=== PATIENT | female | born 1995 | race Caucasian/White ===

== ENCOUNTER → 2023-05-02 14:18 | Outpatient (CLI) | payer OTHER, SELFPAY ==
[2023-05-02 15:15] LABS: Add Manual Diff / Slide Review NO; Basophils Absolute Auto 0 /uL (0-100); Basophils Percent Auto 0.4 % (0-2); Eosinophils Absolute Auto 200 /uL (0-450); Eosinophils Percent Auto 1.7 % (2-4); Hematocrit 37.1 % (36-46); Hemoglobin 12.8 g/dL (12.0-16.0); Lymphocytes Absolute Auto 1900 /uL (1100-4500); Lymphocytes Percent Auto 19.1 % (25-40); Mean Corpuscular HGB Conc 34.5 % (30-36); Mean Corpuscular Hemoglobin 29.4 PG (26-34); Mean Corpuscular Volume 85.2 fL (80-100); Monocytes Absolute Auto 600 /uL (0-900); Monocytes Percent Auto 5.4 % (3-14); Neutrophils Absolute Auto 7500 /uL (1500-7000); Neutrophils Percent Auto 73.4 % (50-75); Platelet Count 329 X10^3/uL (150-400); Red Blood Cell Count 4.35 X10^6/uL (4.0-5.2); White Blood Cell Count 10.2 X10^3/uL (4.5-11.0)
[2023-05-02 15:20] LABS: Appearance Urine UA CLEAR; Bilirubin Urine UA NEGATIVE (NEGATIVE); Color Urine UA YELLOW; Glucose Urine UA NEGATIVE (Negative); Ketones Urine UA NEGATIVE (NEGATIVE); Leukocyte Esterase Urine UA 1+ (NEGATIVE); Nitrite Urine UA NEGATIVE (Negative); Occult Blood Urine UA NEGATIVE (Negative); Protein Urine UA NEGATIVE (Negative); Urobilinogen Urine UA 0.2 E.U./dL (0.2)
[2023-05-02 15:34] LABS: Alanine Aminotransferase 12 IU/L (<35); Aspartate Aminotransferase 20 IU/L (14-36); BUN Creatinine Ratio 10.7 (6-22); Blood Urea Nitrogen 6 mg/dL (7-17); Estimated Glomerular Filt Rate > 60 mL/min (>60); Uric Acid 3.4 mg/dL (2.5-6.2)
[2023-05-02 15:57] LABS: Bacteria Urine Moderate (10-30); RBC Urine 0-1/HPF (0-5/HPF); Squamous Epithelial Cell Urine 1-5 /HPF (0-5/HPF); WBC Urine 10-30/HPF (0-5/HPF)
[2023-05-02 20:07] LABS: HIV 1 & 2 Ab/Ag 4th Gen Combo NEGATIVE (NEGATIVE); Hep C Virus Ab w/Reflex Quant NEGATIVE s/c (NEGATIVE)
[2023-05-02 20:56] LABS: Hepatitis B Surface Antigen NEGATIVE s/c (NEGATIVE); Rubella Antibody IgG 58.1 IU/mL (>15)
[2023-05-04 06:11] LABS: RPR Screen Non Reactive (Non Reactive)
[2023-05-04 14:24] LABS: Varicella IgG Antibody 1654 index (Immune >165)
== END ==
LOC: LAB 14:19
PROVIDERS: Referring Provider Family Medicine; Visit Provider Family Medicine
DX: O09.299 Supervision of pregnancy with other poor reproductive or obstetric history, unspecified trimester (principal)
CPT/HCPCS: 36415; 80055; 81003; 81015; 82565; 84450; 84460; 84520; 84550; 86787; 86803; 86850; 86900; 86901; 87086; 87389

== ENCOUNTER → 2023-05-10 13:49 | Outpatient (CLI) | payer OTHER, SELFPAY ==
--- NOTE | 2023-05-10 13:49 | DI.US.S_ITS ---
PROCEDURE: US OB >= 14 WEEKS FETUS INDICATIONS: anatomy scan OUTSIDE/PRIOR DATING DATA: Last menstrual period (LMP): 12/21/2022 LMP-based estimated date of delivery (RADHA): 09/27/2023. First dating scan (date and location): 05/10/2023. Estimated date of delivery (RADHA) from first dating scan: 09/23/2023. TECHNIQUE: Real-time scanning was performed of the fetus, with image documentation and biometric measurements. COMPARISON: None. FINDINGS: General: A single living intrauterine gestation is present. Presentation: Vertex. Placenta: Placental position is posterior , without previa. Lower placental edge 2 cm or less from internal cervical os qualifies as low lying placenta. Amniotic fluid index: 12.6 cm, normal range is 5-24 cm. Single deepest vertical pocket is 5.2 cm. heart rate: 150 beats per minute. Maternal cervical canal: 4.7 cm long. Normal lower limit is 2.5 cm. biometrics: Biparietal diameter: 21 weeks 4 days Head circumference: 21 weeks 0 days Abdominal circumference: 19 weeks 4 days Femur length: 20 weeks 0 days Clinically estimated gestational age: 20 weeks 0 Composite gestational age from present scan: 20 weeks 4 days Estimated weight and percentile: 324 g; 43rd percentile Anatomic survey: Neuro: Ventricles are non-dilated at less than 10 mm. Cisterna magna is normal at 3-11 mm. Cerebellum is normal in size and morphology. Nuchal skin fold: Normal at less than 6 mm between 14-21 weeks gestational age. Face: Nose and lips, facial profile are normal. Spine: No evidence for spina bifida. Heart: 4-chambered heart is present, with normal LVOT. RVOT suboptimally visualized.. Diaphragm: Diaphragm is intact. Stomach: Left-sided stomach is present. Kidneys: No hydronephrosis. Normal is less than 5 mm in 2nd trimester, less than 7 mm in 3rd trimester. Cord: 3-vessel cord has orthotopic insertion. Bladder: Normal in size. Extremities: All 4 extremities identified. IMPRESSION: 1. Single living IUP redemonstrated and interval growth is normal. 2. RVOT suboptimally visualized; otherwise normal anatomic survey. Short-term follow-up recommended. We strive to produce accurate, complete, and clear reports of imaging services. To assist us in improving patient care, this report was composed using standard report templates and voice recognition software. Therefore, it may contain abnormal punctuation, insertions and/or omissions. Occasional wrong-word or sound-alike substitutions may occur. Though we review the report and make efforts to correct it, we do recommend that the report be read carefully in proper context to recognize any text inaccuracies. Dictated by: Mike BARRETT Interpreted: Praneeth Spaulding MD on 05/10/2023 at 14:46 Transcribed by: MAGY on 05/10/2023 at 14:48 Approved by: Praneeth Spaulding M.D. on 05/17/2023 at 11:19
== END ==
LOC: US 13:49
PROVIDERS: Referring Provider Family Medicine; Visit Provider Family Medicine
DX: O09.292 Supervision of pregnancy with other poor reproductive or obstetric history, second trimester (principal); Z3A.20 20 weeks gestation of pregnancy
CPT/HCPCS: 76811

== ENCOUNTER → 2023-06-13 08:30 | Outpatient (CLI) | payer OTHER, SELFPAY ==
--- NOTE | 2023-06-13 08:31 | DI.US.S_ITS ---
PROCEDURE: US OB LIMITED INDICATIONS: visualization of heart OUTSIDE/PRIOR DATING DATA: Last menstrual period (LMP): 12/21/2022. LMP-based estimated date of delivery (RADHA): 09/27/2023. First dating scan (date and location): 05/10/2023. Estimated date of delivery (RADHA) from first dating scan: 09/23/2023. The calculations are made using the clinical RADHA of 09/27/2023. TECHNIQUE: Real-time scanning was performed of the fetus, with image documentation. COMPARISON: [facility], , US OB >= 14 WEEKS FETUS, 05/10/2023, 13:56. FINDINGS: A single living intrauterine gestation is present. Presentation: Vertex. Placenta: Placental position is posterior, without previa. Amniotic fluid index: 16.5 cm, normal range is 5-24 cm. Single deepest vertical pocket is 5.5 cm. heart rate: 131 beats per minute. Maternal cervical canal: 3.8 cm long. Normal lower limit is 2.5 cm. Clinically estimated gestational age: 24 weeks 6 days Followup visualization of the heart is within normal limits. IMPRESSION: Single live intrauterine with normal visualization of the heart on current exam point Dictated by: Audrey Mayes M.D. on 06/13/2023 at 13:17 Approved by: Audrey Mayes M.D. on 06/13/2023 at 13:19
[2023-06-13 10:33] LABS: Add Manual Diff / Slide Review NO; Basophils Absolute Auto 0 /uL (0-100); Basophils Percent Auto 0.3 % (0-2); Eosinophils Absolute Auto 100 /uL (0-450); Eosinophils Percent Auto 1.3 % (2-4); Hematocrit 34.5 % (36-46); Hemoglobin 12.2 g/dL (12.0-16.0); Lymphocytes Absolute Auto 1900 /uL (1100-4500); Lymphocytes Percent Auto 18.6 % (25-40); Mean Corpuscular HGB Conc 35.5 % (30-36); Mean Corpuscular Hemoglobin 30.3 PG (26-34); Mean Corpuscular Volume 85.3 fL (80-100); Monocytes Absolute Auto 500 /uL (0-900); Monocytes Percent Auto 5.1 % (3-14); Neutrophils Absolute Auto 7600 /uL (1500-7000); Neutrophils Percent Auto 74.7 % (50-75); Platelet Count 286 X10^3/uL (150-400); Red Blood Cell Count 4.04 X10^6/uL (4.0-5.2); Red Cell Distribution Width 13.8 % (11.6-14.8); White Blood Cell Count 10.2 X10^3/uL (4.5-11.0)
[2023-06-13 11:01] LABS: Creatinine Urine Random 44.4 mg/dL; Protein (Total) Urine Random 12 mg/dL (0-12); Protein Creatinine Ratio Urine 0.27 GRAM/24H
[2023-06-13 11:21] LABS: Alanine Aminotransferase 13 IU/L (<35); Albumin 3.6 g/dL (3.5-5.0); Albumin Globulin Ratio 1.2 (1.0-2.8); Alkaline Phosphatase 60 U/L (38-126); Aspartate Aminotransferase 22 IU/L (14-36); Bilirubin Total 0.4 mg/dL (0.2-1.3); Blood Urea Nitrogen 4 mg/dL (7-17); Calcium 8.8 mg/dL (8.4-10.2); Carbon Dioxide 21 mmol/L (22-32); Chloride 106 mmol/L (98-107); Estimated Glomerular Filt Rate > 60 mL/min (>60); GTT (PREG) 1 Hour PP 50gm Dose 100 mg/dL (76-139); Globulin 3.1 g/dL (1.7-4.1); Glucose 100 mg/dL (70-100); HEMOLYSIS < 15 (0-50); Potassium 3.6 mmol/L (3.4-5.1); Sodium 136 mmol/L (137-145); Total Protein 6.7 g/dL (6.3-8.2)
== END ==
LOC: US 08:31
PROVIDERS: Referring Provider Family Medicine; Visit Provider Family Medicine
DX: O09.292 Supervision of pregnancy with other poor reproductive or obstetric history, second trimester (principal); O99.212 Obesity complicating pregnancy, second trimester; Z3A.24 24 weeks gestation of pregnancy
CPT/HCPCS: 36415; 76815; 80053; 82570; 82950; 84156; 85025

== ENCOUNTER → 2023-07-11 11:46 | Outpatient (CLI) | payer OTHER, SELFPAY ==
[2023-07-11 12:17] LABS: Add Manual Diff / Slide Review NO; Basophils Absolute Auto 0 /uL (0-100); Basophils Percent Auto 0.1 % (0-2); Eosinophils Absolute Auto 100 /uL (0-450); Eosinophils Percent Auto 0.9 % (2-4); Hematocrit 34.4 % (36-46); Hemoglobin 11.9 g/dL (12.0-16.0); Lymphocytes Absolute Auto 1900 /uL (1100-4500); Lymphocytes Percent Auto 19.5 % (25-40); Mean Corpuscular HGB Conc 34.6 % (30-36); Mean Corpuscular Hemoglobin 29.9 PG (26-34); Mean Corpuscular Volume 86.6 fL (80-100); Monocytes Absolute Auto 600 /uL (0-900); Monocytes Percent Auto 5.7 % (3-14); Neutrophils Absolute Auto 7300 /uL (1500-7000); Neutrophils Percent Auto 73.8 % (50-75); Platelet Count 283 X10^3/uL (150-400); Red Blood Cell Count 3.98 X10^6/uL (4.0-5.2); Red Cell Distribution Width 13.6 % (11.6-14.8); White Blood Cell Count 9.9 X10^3/uL (4.5-11.0)
== END ==
PROVIDERS: Referring Provider Family Medicine; Visit Provider Family Medicine
DX: D64.9 Anemia, unspecified (principal)
CPT/HCPCS: 36415; 85025

== ENCOUNTER 2023-09-01 19:32 | Observation (INO) | payer OTHER, SELFPAY ==
[2023-09-01 20:51] LABS: Creatinine Urine Random 24.6 mg/dL; Protein (Total) Urine Random 17 mg/dL (0-12); Protein Creatinine Ratio Urine 0.69 GRAM/24H
--- NOTE | 2023-09-01 21:00 | PM.OBTRLD ---
Visit Information Visit Information Date of evaluation: 09/01/23 Primary OB Provider: Esteban Ambrose On-call OB Provider: Bianka Richards Comments/Additional reasons for admission: 27yo at 36w2d here due to dizziness, lightheadedness, and vision changes. The pt reports that this morning she woke with a headache and slightly blurry vision. She was seeing stars with position changes, but this isn't new with her . Yesterday she had some mild RUQ pain, but none today. Her headache and blurry vision have now improved. She was outside on a brisk walk, and started to feel lightheaded and dizzy. She does report not drinking as much water as usual today. This has improved since resting in the hospital. She denies any contractions/cramping, LOF, vaginal bleeding. She feels that her leg swelling has been gradually worsening over the last week or so. The pt was checking her BPs at home throughout the day, and they were frequently 140/90, but not higher. [facility] Surgical History (Updated 05/01/23 @ 08:09 by Yary Farooq RN) History of removal of skin mole [place] teeth extracted History of appendectomy History of cholecystectomy Family History (Updated 05/01/23 @ 08:13 by Yary Farooq RN) Mother Pseudotumor Hypertension Father Heart disease Family estrangement Grandmother Fibrocystic breast Family/Other Epilepsy Social History marital status: number of children: 3 household members: spouse and children lives independently: Yes caregiver/support person: Yes housing: apartment pets and animals: No education level: college occupational status: unemployed current occupational exposures/hazards: No special rody needs: No travel history: recent seatbelt use: always water heater temp set < 120 deg: Yes working smoke detector in home: Yes fire extinguisher in home: Yes carbon monox detector in home: Yes firearms in home: No do you feel safe at home: Yes Smoking Status: Never smoker second hand exposure: No alcohol intake: former substance use type: does not use during the past year weight has: other well-balanced diet: daily or most days daily servings fruits/ve-4 caffeine: Yes (AM cup coffee, usually decaf) Type(s) of exercise: bicycling and other Exam Vital Signs (past 8 hours): Gen: NAD, sitting comfortably on bed, appears well CV: RRR, no murmurs Resp: clear to auscultation bilaterally Ext: trace LE edema Objective Labs 09/01/23 20:45 09/01/23 20:45 Labs: Laboratory Results - last 24 hr 09/01/23 19:40 U Random Total Protein 17 H Urine Creatinine 24.6 Protein/Creatinin Ratio 0.69 Evaluation Evaluation Baseline heart rate: 110 Variability: Moderate (11-25) monitor accelerations: Present Monitor Decelerations: Absent Category of Tracing: Reactive Diagnosis, Plan/Disposition Plan/Disposition Plan: 27yo at 36w2d here due to dizziness, lightheadedness, and vision changes. Mild headache this morning, now resolved. BP elevated at home reportedly, normotensive here. Lab work does show elevated Pr/Cr, no evidence of HELLP. Will have pt complete 24hr urine protein at home to confirm elevation. Discussed with pt recommendations: - Continue checking BPs at home TID. Return for evaluation if > 160/110. - Adequate hydration, rest as much as possible on her left side - Symptoms that warrant return to hospital including headache, vision changes, RUQ pain, acutely worsening swelling - Complete 24hr urine protein at home - Pt will f/u with Dr Ambrose as scheduled on 09/04 with BP log. May need IOL at earlier date OB Disposition: home
[2023-09-01 21:01] LABS: Add Manual Diff / Slide Review NO; Basophils Absolute Auto 0 /uL (0-100); Basophils Percent Auto 0.2 % (0-2); Eosinophils Absolute Auto 200 /uL (0-450); Eosinophils Percent Auto 1.5 % (2-4); Hematocrit 35.9 % (36-46); Hemoglobin 12.4 g/dL (12.0-16.0); Lymphocytes Absolute Auto 3700 /uL (1100-4500); Mean Corpuscular HGB Conc 34.6 % (30-36); Mean Corpuscular Hemoglobin 29.2 PG (26-34); Mean Corpuscular Volume 84.3 fL (80-100); Monocytes Absolute Auto 1000 /uL (0-900); Monocytes Percent Auto 7.1 % (3-14); Neutrophils Absolute Auto 8800 /uL (1500-7000); Neutrophils Percent Auto 64.2 % (50-75); Platelet Count 384 X10^3/uL (150-400); Red Blood Cell Count 4.26 X10^6/uL (4.0-5.2); Red Cell Distribution Width 13.6 % (11.6-14.8); White Blood Cell Count 13.7 X10^3/uL (4.5-11.0)
[2023-09-01 21:13] LABS: Alanine Aminotransferase 18 IU/L (<35); Albumin 3.8 g/dL (3.5-5.0); Albumin Globulin Ratio 1.3 (1.0-2.8); Alkaline Phosphatase 171 U/L (38-126); Aspartate Aminotransferase 28 IU/L (14-36); BUN Creatinine Ratio 12.1 (6-22); Bilirubin Total 0.4 mg/dL (0.2-1.3); Blood Urea Nitrogen 8 mg/dL (7-17); Calcium 9.4 mg/dL (8.4-10.2); Carbon Dioxide 23 mmol/L (22-32); Chloride 107 mmol/L (98-107); Estimated Glomerular Filt Rate > 60 mL/min (>60); Glucose 84 mg/dL (70-100); HEMOLYSIS < 15 (0-50); Potassium 3.9 mmol/L (3.4-5.1); Sodium 134 mmol/L (137-145); Total Protein 6.8 g/dL (6.3-8.2)
== END 2023-09-01 21:51 | disposition home or self-care (01) ==
PROVIDERS: Admitting Provider Family Medicine; Referring Provider Family Medicine; Visit Provider Family Medicine
DX: O26.893 Other specified pregnancy related conditions, third trimester (principal); Z3A.36 36 weeks gestation of pregnancy; R42 Dizziness and giddiness; H53.9 Unspecified visual disturbance; R51.9 Headache, unspecified
CPT/HCPCS: 36415; 59025; 80053; 82570; 84156; 85025; G0378; G0379

== ENCOUNTER → 2023-09-04 10:05 | Outpatient (CLI) | payer OTHER, SELFPAY ==
[2023-09-04 11:55] LABS: Collection Time Urine 24 Hours; Protein (Total) Urine Random 10 mg/dL (0-12); Total Protein 24 Hour Urine 400 mg/day (42-225); Total Volume Urine 4000 mL
== END ==
PROVIDERS: Referring Provider Family Medicine; Visit Provider Family Medicine
DX: O13.9 Gestational [pregnancy-induced] hypertension without significant proteinuria, unspecified trimester (principal)
CPT/HCPCS: 84156

== ENCOUNTER → 2023-09-05 14:45 | Outpatient (CLI) | payer OTHER, SELFPAY ==
[2023-09-06 14:27] LABS: Strep Grp B PCR NEG for Grp B Strep
== END ==
PROVIDERS: Visit Provider Family Medicine
DX: O09.299 Supervision of pregnancy with other poor reproductive or obstetric history, unspecified trimester (principal)
CPT/HCPCS: 87653

== ENCOUNTER 2023-09-08 07:22 | Inpatient (IN) | payer OTHER, SELFPAY ==
--- NOTE | 2023-09-08 07:58 | P.HPOB_ITS ---
OB HPI Date/Time Date of admission: 09/08/23 Date Patient Seen: 09/08/23 History of Present Condition Chief complaint: induction RADHA Calculator 2 Estimated Delivery Date Method Current WG Current Estimate 09/27/23 LMP (Certain) 37w 2d Estimated Gestational Age (weeks): 37+2 : 4 Para: 3 Narrative: Marivel is a 27-year-old at GA 37+2 weeks presenting for mIOL due to preeclampsia without severe features. Endorses normal movement. Denies vaginal bleeding or denies leakage of fluid. She has been experiencing increased dizziness, lightheadedness and occasional vision changes over the preceding 2-3 weeks. Seen 1 week ago as triage patient, found to have elevated urine protein/creatinine ratio but normal BP, platelets, and LFTs. Discharge home in completed 24 hour urine collection which was noted to be elevated at 400 mg per day. She currently denies any headache, acute vision change, RUQ pain, new SOB, or peripheral edema. complicated by history of preeclampsia for which she is taking aspirin 81 mg daily and obesity with appropriate weight gain during . There was concern for low-lying placenta on initial anatomy ultrasound which subsequently resolved on follow-up imaging 4 weeks later. care: good care Dating criteria OB: LMP confirmed by 1st trimester US Ultrasounds: normal 1st trimester US and normal mid trimester US Obstetrical complications: preeclampsia Indications Indication for induction OB: gestational HTN/pre-eclampsia Preadmission Labs Last OB Lab Results: 2 Blood Type A Positive 09/08/23 08:15 Antibody Screen Negative 09/08/23 08:15 Hematocrit 40.4 % (36-46) 09/08/23 08:15 Hemoglobin 13.7 g/dL (12.0-16.0) 09/08/23 08:15 Hepatitis B Surface Antigen Negative s/c (NEGATIVE) 05/02/23 14 :25 Hepatitis C Antibody Negative s/c (NEGATIVE) 05/02/23 14:29 Rubella Antibody 58.1 IU/mL (>15) 05/02/23 14:25 Varicella-Zoster IgG Antibody 1654 index (Immune >165) 05/02/23 14:29 Glucose 1 Hour 100 mg/dL (76-139) 06/13/23 10:22 Group B Streptococcus (PCR) Neg for grp b strep 09/05/23 14:45 Glucose Tolerance Testin hr Prior (ies) Past Pregnancies Del. Date GA/Weeks Labor Lgth Wt Sex Route Outcome Anesthesia Place Delv Breastfeed Preg Comp Name 06/20/19 37+ 24 6 lb 10 oz Male vaginal live - full te rm epidural [facility] Attempted other [place] 08/03/20 40.1 3 7 lb 15 oz Male vaginal live - full term n one Jessenia Nair 1 month pre-eclampsia [place] 07/27/22 39 4 6 lb 15 oz Female vaginal live - full te rm epidural Jessenia Nair 5 months none [place] Delivery Date: 06/20/19 Last Updated by: Yary Farooq RN gallstones, induced so that she could have cholecystectomy Delivery Date: 08/03/20 Last Updated by: Yary Farooq RN Almost immediate Covid, preeclampsia lasted ~4 months Evaluation Evaluation Baseline heart rate: 120 Variability: Moderate (11-25) monitor accelerations: Present Monitor Decelerations: Absent Category of Tracing: Reactive Status: Category l Dilation: Closed Effacement: 40-50% station: -3 Position of cervix: posterior Consistency: firm Mercado score: 1 Comments: Exam per L&D RN [facility] Surgical History (Updated 05/01/23 @ 08:09 by Yary Farooq RN) History of removal of skin mole [place] teeth extracted History of appendectomy History of cholecystectomy Family History (Updated 05/01/23 @ 08:13 by Yary Farooq RN) Mother Pseudotumor Hypertension Father Heart disease Family estrangement Grandmother Fibrocystic breast Family/Other Epilepsy Social History marital status: number of children: 3 household members: spouse and children lives independently: Yes caregiver/support person: Yes housing: apartment pets and animals: No education level: college occupational status: unemployed current occupational exposures/hazards: No special rody needs: No travel history: recent seatbelt use: always water heater temp set < 120 deg: Yes working smoke detector in home: Yes fire extinguisher in home: Yes carbon monox detector in home: Yes firearms in home: No do you feel safe at home: Yes Smoking Status: Never smoker second hand exposure: No alcohol intake: former substance use type: does not use during the past year weight has: other well-balanced diet: daily or most days daily servings fruits/ve-4 caffeine: Yes (AM cup coffee, usually decaf) Type(s) of exercise: bicycling and other Meds Home Medications and Allergies Home Medications Medication Instructions Recorded Confirmed Type [id number] 400 mcg-om3 35 mg-dha 25 tab PO 05/01/23 09/05/23 History mg-epa 5 mg-fish oil chewable tablet aspirin 81 mg tablet,delayed 81 mg PO DAILY 05/01/23 09/05/23 History release famotidine 20 mg tablet 20 mg PO DAILY #90 tabs 05/30/23 09/05/23 Rx doxylamine succinate 25 mg tablet 25 mg PO BEDTIME PRN insomnia #30 08/17/23 09/05/23 Rx (Unisom (doxylamine)) tabs fluconazole 150 mg tablet 150 mg PO Q3D 2 doses #2 tabs 08/27/23 09/05/23 Rx Allergies Allergy/AdvReac Type Severity Reaction Status Date / Time No Known Drug Allergies Allergy Verified 09/05/23 14:40 Review of Systems Review of Systems ROS: Yes All systems reviewed with the patient and are negative except as otherwise documented OB Exam Narrative Exam Narrative: General: Well-nourished, no distress HEENT: NC/AT, EOMI, moist mucous membranes CV: RRR, normal S1 S2, no m/g/r Resp: CTAB Abd: Gravid, soft, NTND, +BS Ext: Full ROM, varicose veins affecting RLE, no edema Skin: No rash or lesions Neuro: A&O x3, normal tone, no focal deficits Objective Labs 09/08/23 08:15 09/08/23 08:15 Assessment and Plan Assessment and Plan Assessment and Plan narrative: 27-year-old at [place] 37+2 weeks presenting for mIOL due to preeclampsia without severe features. complicated by worsening proteinuria, history of preeclampsia in previous , maternal obesity with appropriate weight gain. -admit to L&D -cervical ripening with misoprostol q4h, transition to pitocin when Mercado favorable -GBS negative, ppx not indicated -pain control prn if desired by patient -PPH risk low -VTE risk low, SCDs with epidural -anticipate vaginal delivery Time Spent with Patient Total time spent with greater than 50% in coordination of care (as documented) at patient's floor/unit and/or counseling patient:: 15-24 minutes
[2023-09-08 08:29] LABS: Add Manual Diff / Slide Review NO; Basophils Absolute Auto 0 /uL (0-100); Basophils Percent Auto 0.3 % (0-2); Eosinophils Absolute Auto 100 /uL (0-450); Eosinophils Percent Auto 0.9 % (2-4); Hematocrit 40.4 % (36-46); Hemoglobin 13.7 g/dL (12.0-16.0); Lymphocytes Absolute Auto 3900 /uL (1100-4500); Lymphocytes Percent Auto 26.1 % (25-40); Mean Corpuscular HGB Conc 33.8 % (30-36); Mean Corpuscular Volume 85.7 fL (80-100); Monocytes Absolute Auto 1000 /uL (0-900); Monocytes Percent Auto 6.5 % (3-14); Neutrophils Absolute Auto 10000 /uL (1500-7000); Neutrophils Percent Auto 66.2 % (50-75); Platelet Count 410 X10^3/uL (150-400); Red Blood Cell Count 4.71 X10^6/uL (4.0-5.2); Red Cell Distribution Width 13.6 % (11.6-14.8); White Blood Cell Count 15.1 X10^3/uL (4.5-11.0)
[2023-09-08] MEDS: miSOPROStoL 25 MCG TABLET PO (08:31)
[2023-09-08 09:17] VITALS: BP 123/79
[2023-09-08 10:20] LABS: Aspartate Aminotransferase 39 IU/L (14-36); BUN Creatinine Ratio 11.9 (6-22); Blood Urea Nitrogen 8 mg/dL (7-17); Estimated Glomerular Filt Rate > 60 mL/min (>60); Uric Acid 5.1 mg/dL (2.5-6.2)
[2023-09-08] MEDS: miSOPROStoL 25 MCG TABLET 50 MCG SL (12:38)
[2023-09-08] MEDS: LACTATED RINGERS 1,000 ML 100 ML IV ×2 (13:00→22:36)
[2023-09-08] MEDS: OXYTOCIN PREMIX 30 UNIT/500 ML PLAST..BAG IV (18:16)
[2023-09-08] MEDS: ONDANSETRON 4 MG/2 ML INJ IV (21:36)
[2023-09-09] MEDS: LACTATED RINGERS 1,000 ML 100 ML IV ×2 (03:47→15:42)
[2023-09-09] MEDS: miSOPROStoL 25 MCG TABLET 50 MCG SL (09:06)
[2023-09-09] MEDS: OXYTOCIN PREMIX 30 UNIT/500 ML PLAST..BAG IV (13:24)
--- NOTE | 2023-09-09 13:42 | PM.OBPNLAB ---
Date/Time Date Patient Seen: 09/09/23 Time Patient Seen: 13:42 Pain Control Pain control: other Comments: Increasing discomfort with pelvic exams, otherwise feeling fine. Somewhat frustrated with the process of induction. Pelvic Exam Dilation (cm): 3 Effacement (%): 80 station: -2 Amniotic membrane status: Intact Contractions Contractions on admission: none Monitor mode: External Pitocin rate (mU/min): 2 Contraction frequency (min): 4 Contraction duration (min): 1 Contraction pattern: Regular Status status: Category l Heart Rate Baseline: 125 Monitor Accelerations: Present Monitor Decelerations: Absent Monitor Variability: Moderate Assessment and Plan Assessment: induction ongoing Comments: IOL for preeclampsia w/o severe features starting with p.o. misoprostol x2 doses then transitioned to Pitocin once Mercado score was 6. No cervical change overnight despite Pitocin increase to max rate 20 mu/min. Repeat dose misoprostol administered this morning resulting in cervical ripening, current Mercado score 8. MWB: IV fentanyl administered x1 due to patient discomfort with pelvic exams. No clinical symptoms preeclampsia, BP has remained in normal range throughout admission. FWB: Cat 1 strip Plan: Man balloon placed, restart Pitocin and titrate to adequate contraction pattern. Plan AROM once in active labor. Anticipate vaginal delivery.
[2023-09-09] MEDS: fentaNYL 100 MCG/2 ML INJ 50 MCG IV (13:43)
--- NOTE | 2023-09-09 15:32 | PM.AN.REGBLK ---
Regional Block Pre-procedure Procedure: Continuous Lumbar Epidural for L&D Attending OB provider: Esteban Ambrose PMH/ROS narrative: 37w2d IOL for PEC Hx: No personal or family history of anesthesia problems. PSH/Anesthesia history narrative: previous DAT, gallbladder, appy ASA Class: II Labs: Hct 40.4 % (36-46) 09/08/23 08:15 Plt Count 410 X10^3/uL (150-400) H 09/08/23 08:15 Medications: Current Medications Generic Name Dose Route Start Last Admin Trade Name Freq PRN Reason Stop Dose Admin Carboprost Tromethamine 250 mcg 09/08/23 07:51 Carboprost 250 Mcg/Ml Ampul IM Q90M PRN Bleeding Fentanyl 50 mcg 09/08/23 07:51 09/09/23 13:43 Fentanyl 100 Mcg/2 Ml Inj IV 50 mcg Q1H PRN Administration Pain, Moderate (4-6) Oxytocin/Lactated Ringer's 30 unit in 500 mls @ 200 mls/hr 09/08/23 07:51 Oxytocin Premix IV CONT PRN Bleeding Protocol Tranexamic Acid 1,000 mg/ 100 mls @ 200 mls/hr 09/08/23 07:51 Sodium Chloride IV NOW PRN Bleeding Lactated Ringer's 1,000 mls @ 100 mls/hr 09/08/23 08:00 09/09/23 03:47 Lactated Ringers IV 100 mls/hr CONT BRETT Administration Oxytocin/Lactated Ringer's 30 unit in 500 mls @ 1 mls/hr 09/08/23 18:15 09/09/23 13:24 Oxytocin Premix IV 1 milliunit/min TITRATE BRETT 1 mls/hr Administration Protocol 1 MILLIUNIT/MIN Lidocaine HCl 20 ml 09/08/23 07:51 Lidocaine 1% 20 Ml INJ INTRA-OP PRN Post Delivery Methylergonovine Maleate 0.2 mg 09/08/23 07:51 Methylergonovine 0.2 Mg Tablet PO Q6HR PRN Heavy Bleeding Methylergonovine Maleate 0.2 mg 09/08/23 07:51 Methylergonovine 0.2 Mg/Ml Vial IM NOW PRN Bleeding Mineral Oil 30 ml 09/08/23 07:51 Mineral Oil 30 Ml Udc TOP PRN PRN Version Misoprostol 800 mcg 09/08/23 07:51 Misoprostol 200 Mcg Tablet NV NOW PRN Bleeding Misoprostol 400 mcg 09/08/23 07:51 Misoprostol 200 Mcg Tablet SL NOW PRN Bleeding Misoprostol 25 mcg 09/08/23 08:00 09/08/23 08:31 Misoprostol 25 Mcg Tablet PO 25 mcg Q4H BRETT Administration Misoprostol 50 mcg 09/08/23 11:53 09/09/23 09:06 Misoprostol 25 Mcg Tablet SL 50 mcg Q4H PRN Administration Labor Induction Naloxone HCl 0.2 mg 09/08/23 07:51 Naloxone 0.4 Mg/Ml Vial IV Q2MIN PRN Opiate Reversal Ondansetron HCl 4 mg 09/08/23 07:51 09/08/23 21:36 Ondansetron 4 Mg/2 Ml Inj IV 4 mg Q4HR PRN Administration Nausea And Vomiting Oxytocin 10 unit 09/08/23 07:51 Oxytocin 10 Unit/Ml Vial IM NOW PRN Bleeding Sodium Chloride 10 ml 09/08/23 09:00 Sodium Chloride 0.9% Flush IV BID BRETT Sodium Chloride 10 ml 09/08/23 07:51 Sodium Chloride 0.9% Flush IV PRN PRN Flush Allergies: Allergies Allergy/AdvReac Type Severity Reaction Status Date / Time No Known Drug Allergies Allergy Verified 09/05/23 14:40 Procedure Insertion date: 09/09/23 Insertion time: 15:06 Prep/Local: 1% lidocaine (CHG prep, Lido 3 cc @ L3/4, 2 cc @ L 4/5) Interspace: L3/4 unsuccessful, cathete @ L4/5 Patient position: sitting Needle: 18 gauge Josue Loss of resistance with: saline JULIANNE at (cm): 9 Catheter placed at SKIN (cm): 14 Insertion: No CSF, No Blood, No Paresthesia with insertion, No Paresthesia with injection and No Test dose reaction Initial Medications TEST DOSE time: 15:09 BOLUS DOSE time: 15:47 BOLUS DOSE (mL): 10 BOLUS DOSE med: other (0.125% bupivacaine) Infusion INFUSION: 0.125% bupivacaine and with fentanyl 2 mcg/mL Initial rate (mL/hr): 10 Post-procedure Anesthesia date START: 09/09/23 Anesthesia time START: 14:48
[2023-09-09] MEDS: ONDANSETRON 4 MG/2 ML INJ IV (16:18)
--- NOTE | 2023-09-09 18:31 | P.PCNOB_ITS ---
Events: Pre-Eclampsia, Labor Induction and Labor Augmentation Labor & Delivery Delivery date: 09/09/23 Cervical ripening method: per misoprostal protocol (with Man bulb) Induction method: per pitocin protocol Delivery augmentation: rupture of membranes Delivery monitor: external FHT Route of delivery: L&D Laceration Description: None Quantitative Blood Loss: 545 Anesthesia Type: Epidural Narrative: Patient fully dilated at 1750 and began pushing at 1807. Spontaneous vaginal delivery of a viable male in the NICHOLAS position occurred at 1811. The was suctioned and stimulated at the perineum, and gave appropriate cry with movement of all extremities. Delayed cord clamping was observed for over 60 seconds. The cord was clamped and cut, and the handed to mother for skin to skin. Cord blood and segment were obtained. The placenta was delivered without difficulty using gentle cord traction and found to be intact with a 3- vessel cord. After fundal massage the uterus was firm and bleeding stopped. The vagina and cervix were examined for lacerations with none noted. Patient stable with rooming in, bonding skin to skin and attempting to breastfeed. Baby 1: Infant gender: Male Presentation: vertex Position: Right Occiput Anterior Placenta delivery description: Spontaneous Cord Vessel Description: 3 Vessels, Nuchal Cord, True Knot and Loose score (1 min): 8 score (5 min): 9 weight: 7 lb 10.154 oz Narrative: Loose nuchal x1 delivered through and then released, true knot higher up cord. Plan for aftercare: Routine care
[2023-09-09] MEDS: DERMOPLAST SPRAY 20% 60 ML 1 SPRAY TOP (22:10)
[2023-09-09] MEDS: LANOLIN OINT 7 GM 1 APPLIC TOP (22:11)
[2023-09-09] MEDS: IBUPROFEN 600 MG TABLET PO (22:11)
[2023-09-10] MEDS: IBUPROFEN 600 MG TABLET PO ×2 (06:39→13:19)
[2023-09-10] MEDS: polyethylene glycoL 3350 17 GM POWD.PACK PO (10:01)
[2023-09-10] MEDS: PRENATAL VIT,CALC/IRON/FOLIC 1 TABLET 1 TAB PO (10:01)
--- NOTE | 2023-09-10 12:53 | P.DS_ITS ---
Discharge Providers Provider Date of admission: 09/08/23 07:22 Discharge Date: 09/10/23 Primary care physician: Paris MARTINEZ Provider Consults: 09/08/23 07:52 Consult to Anesthesiology Urgent Comment: Consulting Provider: Anesthesiologist Reason for consultation: Epidural 09/10/23 18:43 Consult to Bag Shop Worker Routine Comment: Discharge provider: Esteban Ambrose MD Summary Hospital Course Date Patient Seen: 09/10/23 Time Patient Seen: 12:53 Diagnoses: Preeclampsia without severe features Hospital Course: Admitted for mIOL on 09/08/2023 at GA 37+2 due to preeclampsia without severe features. Underwent cervical ripening starting with p.o. misoprostol x2 doses then transitioned to Pitocin once Mercado score was 6. No cervical change overnight despite Pitocin increase to max rate 20 mu/min. Repeat dose misoprostol administered next morning followed by Man balloon placement and reinitiation of Pitocin. She then progressed to complete dilation over the next 7 hours. She had an uncomplicated of a live male with no lacerations. Her course was uncomplicated, BP remained normal throughout admission. At discharge patient is ambulating well, tolerating normal diet, breast-feeding without difficulty, and pain is adequately controlled. She reports bleeding is slightly heavier than normal menses. Peripartum Data Infant Delivery Method: Natural Vaginal Laceration Description: None complications: none 1: Gender: Male Disposition of : home Discharge Diagnosis (1) Preeclampsia: Start Date: 09/01/23 Status: Acute (2) (spontaneous vaginal delivery): Start Date: 09/09/23 Status: Acute (3) Mother currently breast-feeding: Start Date: 09/09/23 Status: Acute Status at Discharge Cognitive/behavioral status at discharge: at baseline, oriented Functional status at discharge: independent ambulation Overall status at discharge: patient is back to baseline Time Spent with Patient Time attestation: Total time spent providing and/or coordinating discharge services: Greater than 30 minutes Objective Labs 09/08/23 08:15 09/08/23 08:15 Exam Narrative Exam Narrative: General: Well-appearing, well-nourished, no distress HEENT: Moist mucous membranes, no pallor CV: Regular rate and rhythm, no murmur auscultated Resp: CTAB, comfortable work of breathing Abdomen: Soft, bowel sounds present, fundus firm below umbilicus with appropriate tenderness Extremities: No edema, varicose veins of RLE, no calf tenderness or evidence of DVT Discharge Plan Discharge Plan Patient Disposition: Home Discharge orders & Medications Prescriptions: New Dermoplast (with menthol) 20-0.5 % Aerosol 1 spray topical Q1HR PRN (Reason: perineal pain) Qty: 56 1RF ibuprofen 600 mg Tablet 600 mg PO Q6HR PRN (Reason: Pain, Mild (1-3)) Qty: 60 0RF Purelan Cream 1 applic topical PRN PRN (Reason: Tenderness) Qty: 7 3RF [employer]. Witch Delia 12.5-50 % Pads, Medicated 1 pad topical Q30M PRN (Reason: Itching) Qty: 40 0RF polyethylene glycol 3350 17 gram/dose powder 17 g PO DAILY Qty: 510 1RF Continued famotidine 20 mg tablet 20 mg PO DAILY Qty: 90 1RF [id number] oil 400 mcg-35 mg -25 mg-5 mg tablet,chewable PO Discontinued Unisom (doxylamine) 25 mg tablet 25 mg PO BEDTIME PRN (Reason: insomnia) Qty: 30 1RF fluconazole 150 mg tablet 150 mg PO Q3D Qty: 2 0RF Rx Instructions: Take second dose after 72 hours if still experiencing symptoms aspirin 81 mg tablet,delayed release (DR/EC) 81 mg PO DAILY Follow up/Referrals: Paris Solo [Primary Care Provider] - Visit Report/Discharge Packet Stand Alone Forms: Discharge: Care, Patient Portal/API, Stroke Signs & Symptoms Discharge Data Primary Care Provider: Paris Solo Attending Provider: Esteban Ambrose Admit Date/Time: 09/08/23 07:22
[2023-09-10] MEDS: ACETAMINOPHEN 325 MG TABLET 650 MG PO (13:19)
== END 2023-09-10 13:40 | disposition home or self-care (01) | DRG 807 ==
PROVIDERS: Admitting Provider Family Medicine; Referring Provider Family Medicine; Visit Provider Family Medicine
DX: O14.04 Mild to moderate pre-eclampsia, complicating childbirth (principal); Z37.0 Single live birth; Z3A.37 37 weeks gestation of pregnancy
CPT/HCPCS: 36415; 59050; 59200; 84450; 84550; 85025; 86850; 86900; 86901; G0378; A9270; G0379; J2405; J2590; J3010

== ENCOUNTER 2024-05-31 10:38 | Emergency (ER) | payer OTHER, SELFPAY ==
[2024-05-31 10:56] VITALS: BP 137/83; PULSE 122; RESP 20; TEMP 37.3; O2SAT 96; BMI 39.2
[2024-05-31 11:14] VITALS: PULSE 110
[2024-05-31 11:58] LABS: Influenza A - CEPHEID Flu A NEGATIVE (NEGATIVE); Influenza B - CEPHEID Flu B NEGATIVE (NEGATIVE); Respiratory Syncytial Virus Negative (Negative)
[2024-05-31 12:05] LABS: COVID-19 CEPHEID 4-PLEX PCR Negative (Negative)
--- NOTE | 2024-05-31 12:23 | PC.NURSE ---
Gumaro MEHTA stated no throat culture
[2024-05-31 12:38] LABS: Strep Grp A by PCR Rapid Positive (Negative)
--- NOTE | 2024-05-31 13:16 | ED_ITS ---
HPI - URI/Sore Throat <Jacqueline Naik PA-C - Last Filed: 05/31/24 13:53> General Chief Complaint: Upper Respiratory Symptoms Stated Complaint: fever, nausea, dizzy Time Seen by Provider: 05/31/24 13:14 Source: patient Mode of arrival: Family Vehicle History of Present Illness HPI Narrative: 28-year-old female presents with a chief complaint of fever, little bit of nausea and just generally feeling unwell for the last couple of days. She also endorses a sore throat and measured her temperature yesterday tympanic of 104. She reports a little bit of mucus and blood tinge with occasional cough. She denies any shortness of breath or any history of any airspace disease. She did take Tylenol at 4:00 a.m. this morning which did help. She also reports some aches mainly on the left side, but no diarrhea, no back pain, not currently , she works at the Branch in the [employer]. No known contact with sick persons. All other systems are reviewed and are negative. Related Data Home Medications Medication Instructions Recorded Confirmed [id number] 400 mcg-om3 35 mg-dha 25 tab PO 05/01/23 10/20/23 mg-epa 5 mg-fish oil chewable tablet Previous Rx's Medication Instructions Recorded famotidine 20 mg tablet 20 mg PO DAILY #90 tabs 05/30/23 benzocaine 20 %-menthol 0.5 % 1 spray topical Q1HR PRN perineal 09/10/23 topical aerosol (Dermoplast (with pain #56 grams menthol)) glycerin-witch porfirio 12.5 %-50 % 1 pad topical Q30M PRN Itching #40 09/10/23 topical pads (A.E.R. Witch Porfirio) ea ibuprofen 600 mg tablet 600 mg PO Q6HR PRN Pain, Mild 09/10/23 (1-3) #60 tabs lanolin (Purelan topical cream) 1 applic topical PRN PRN 09/10/23 Tenderness #7 grams polyethylene glycol 3350 17 17 g PO DAILY #510 grams 09/10/23 gram/dose oral powder amoxicillin 500 mg tablet 500 mg PO TID #30 tabs 05/31/24 Allergies Allergy/AdvReac Type Severity Reaction Status Date / Time No Known Drug Allergies Allergy Verified 10/20/23 11:07 Review of Systems <Jacqueline Naik PA-C - Last Filed: 05/31/24 13:53> Review of Systems Narrative: All other systems reviewed and are negative. Patient History <Jacqueline Naik PA-C - Last Filed: 05/31/24 13:53> Medical History Preeclampsia (spontaneous vaginal delivery) Low-lying placenta in second trimester High risk due to history of previous obstetrical problem Surgical History History of removal of skin mole [place] teeth extracted History of appendectomy History of cholecystectomy Family History Mother Pseudotumor Hypertension Father Heart disease Family estrangement Grandmother Fibrocystic breast Family/Other Epilepsy Social History marital status: number of children: 3 household members: spouse and children lives independently: Yes caregiver/support person: Yes housing: apartment pets and animals: No education level: college occupational status: unemployed current occupational exposures/hazards: No special rody needs: No travel history: recent seatbelt use: always water heater temp set < 120 deg: Yes working smoke detector in home: Yes fire extinguisher in home: Yes carbon monox detector in home: Yes firearms in home: No do you feel safe at home: Yes Smoking Status: Never smoker second hand exposure: No alcohol intake: former substance use type: does not use during the past year weight has: other well-balanced diet: daily or most days daily servings fruits/ve-4 caffeine: Yes (AM cup coffee, usually decaf) Type(s) of exercise: bicycling and other Smoking Status: Never smoker Exam <Jacqueline Naik PA-C - Last Filed: 05/31/24 13:53> Initial Vital Signs Initial Vital Signs: Vital Signs Temperature 99.1 F 05/31/24 10:56 Pulse Rate 122 H 05/31/24 10:56 Respiratory Rate 20 05/31/24 10:56 Blood Pressure 137/83 05/31/24 10:56 Pulse Oximetry 96 05/31/24 10:56 Oxygen Delivery Method Room Air 05/31/24 10:56 Vital signs reviewed and are normal except for her heart rate, it was rechecked and it did come down to 110. Recheck of her temperature at 1:15 p.m. it is 100.1, she is administered acetaminophen 650 mg. Const General: cooperative, healthy appearing, well developed and No acute distress HENCT Head: normal to inspection and normocephalic Ears: hearing grossly normal bilaterally, external ears normal and TM's normal bilaterally Nose: external nose normal, nares normal and nasal mucous membranes and turbinates normal Face and sinus: normal facial exam, sinuses nontender and face symmetric Mouth: oral mucosae normal, lip normal, tongue normal, oropharynx normal and moist mucous membranes Teeth and gingiva: dentition normal and gingiva normal Throat: posterior oropharynx normal, tonsils normal, uvula midline and postnasal drainage HENMT Other: No tonsillar enlargement, no exudate, no odor. No hot potato voice. Eyes General: Yes appearance normal, both eyes and all related structures Neck Neck: normal visual inspection, full ROM, no meningeal signs and supple Lymphatic: No lymphadenopathy Resp Effort & Inspection: normal respiratory effort and able to speak in complete sentences Auscultation: clear to auscultation bilaterally, no rales, no rhonchi and no wheezes Other: No cough with deep inspiration, equal expansion. No rash. Cardio Rate: regular rate Rhythm: regular rhythm GI Palpation: no hepatosplenomegaly Skin General: no rashes or lesions noted, elasticity normal and turgor normal <Betsy Menon DO - Last Filed: 05/31/24 18:40> Initial Vital Signs Initial Vital Signs: Vital Signs Temperature 99.1 F 05/31/24 10:56 Pulse Rate 122 H 05/31/24 10:56 Respiratory Rate 20 05/31/24 10:56 Blood Pressure 137/83 05/31/24 10:56 Pulse Oximetry 96 05/31/24 10:56 Oxygen Delivery Method Room Air 05/31/24 10:56 Course <Jacqueline Naik PA-C - Last Filed: 05/31/24 13:53> Orders Ordered: ED Orders 05/31/24 11:06 Strep Screen Stat 05/31/24 11:10 Covid-19 + FLU A/B + RSV - PCR Stat 05/31/24 12:19 Strep Grp A by PCR Rapid Stat Discontinued Medications Acetaminophen (Acetaminophen 325 Mg Tablet) 650 mg PO NOW ONE Stop: 05/31/24 13:18 Last Admin: 05/31/24 13:28 Dose: 650 mg Documented By: CHARLENE Vital Signs Vital signs: Vital Signs - 8 hr 05/31/24 10:56 05/31/24 11:14 05/31/24 13:55 Temperature 99.1 F 99.9 F H Pulse Rate 122 H 110 H 110 H Respiratory Rate 20 19 Blood Pressure 137/83 139/79 Pulse Oximetry 96 95 Oxygen Delivery Method Room Air Room Air <Betsy Menon DO - Last Filed: 05/31/24 18:40> Orders Ordered: ED Orders 05/31/24 11:06 Strep Screen Stat 05/31/24 11:10 Covid-19 + FLU A/B + RSV - PCR Stat 05/31/24 12:19 Strep Grp A by PCR Rapid Stat Discontinued Medications Acetaminophen (Acetaminophen 325 Mg Tablet) 650 mg PO NOW ONE Stop: 05/31/24 13:18 Last Admin: 05/31/24 13:28 Dose: 650 mg Documented By: CHARLENE Vital Signs Vital signs: Vital Signs - 8 hr 05/31/24 10:56 05/31/24 11:14 05/31/24 13:55 Temperature 99.1 F 99.9 F H Pulse Rate 122 H 110 H 110 H Respiratory Rate 20 19 Blood Pressure 137/83 139/79 Pulse Oximetry 96 95 Oxygen Delivery Method Room Air Room Air MDM - URI/Sore Throat <Jacqueline Naik PA-C - Last Filed: 05/31/24 13:53> Lab Data Lab results narrative: Rapid strep was positive, her quad respiratory panel was negative. Labs: Lab Results 05/31/24 05/31/24 Range/Units 11:10 12:19 SARS-CoV-2 (PCR) Negative (Negative) Influenza A (RT-PCR) Flu a negative (NEGATIVE) Influenza B (RT-PCR) Flu b negative (NEGATIVE) RSV (PCR) Negative (Negative) Group A Strep (PCR) Positive H (Negative) MDM Narrative Medical decision making narrative: Nontoxic-appearing 28-year-old female soreness of throat and associated upper respiratory symptoms, she was positive for strep, there was no rash, no hepatosplenomegaly, tonsils were actually unremarkable on examination, no appreciable adenopathy and no meningeal signs. She is treated with Tylenol here as her fever did recur at 100.1, she has prescribed a course of 10 days of amoxicillin, she may crush these tablets in yogurt, recommended vesw-dcm-jwtudkh preparation such as NyQuil, DayQuil, ibuprofen, saline nasal spray, throat lozenges cough drops or any preparation of choice. Highly recommend she hydrate, popsicles are great, non irritating foods, soaps, avoid close contacts for the next 48 hours. Please do not hesitate to seek medical attention if anything changes or worsens. <Betsy Delisa Menon, DO - Last Filed: 05/31/24 18:40> Lab Data Labs: Lab Results 05/31/24 05/31/24 Range/Units 11:10 12:19 SARS-CoV-2 (PCR) Negative (Negative) Influenza A (RT-PCR) Flu a negative (NEGATIVE) Influenza B (RT-PCR) Flu b negative (NEGATIVE) RSV (PCR) Negative (Negative) Group A Strep (PCR) Positive H (Negative) Discharge Plan Departure Patient Disposition: Home Clinical Impression: Acute streptococcal pharyngitis Instructions: DI for Strep Throat Activity Restrictions/Additional Instructions: Please continue to take Tylenol you may take this every 4 hours as needed for pain and fever, ibuprofen can be taken every 8 hours with food. Warm compresses on your neck for any swollen glands, please start the antibiotic today, you can crush the tablet and hide it in yogurt or applesauce, avoid close contacts for the next 48 hours, you may return to work on Monday if you feel well, I recommend popsicles, smoothies, non irritating foods, rest, and of course seek medical attention if anything changes or worsens. Your rapid strep was positive, but your respiratory panel was negative for flu, COVID or RSV. Again you should see some gradual improvement over the next couple of days. Do not hesitate to return or seek medical attention if you develop any new worrisome symptoms, celu-uuc-vcbfzso preparations such as pseudoephedrine, Robitussin, NyQuil or DayQuil or also helpful but some of these do contain acetaminophen so use caution I do not exceed 4000 mg in a 24 hour period. Prescriptions: New amoxicillin 500 mg tablet 500 mg PO TID Qty: 30 0RF No Action famotidine 20 mg tablet 20 mg PO DAILY Qty: 90 1RF [id number] oil 400 mcg-35 mg -25 mg-5 mg tablet,chewable PO Dermoplast (with menthol) 20-0.5 % Aerosol 1 spray topical Q1HR PRN (Reason: perineal pain) Qty: 56 1RF ibuprofen 600 mg Tablet 600 mg PO Q6HR PRN (Reason: Pain, Mild (1-3)) Qty: 60 0RF Purelan Cream 1 applic topical PRN PRN (Reason: Tenderness) Qty: 7 3RF A.E.R. Witch Porfirio 12.5-50 % Pads, Medicated 1 pad topical Q30M PRN (Reason: Itching) Qty: 40 0RF polyethylene glycol 3350 17 gram/dose powder 17 g PO DAILY Qty: 510 1RF Referrals: Provider,Paris MARTINEZ [Primary Care Provider] - Stand Alone Forms: Patient Portal/API/Survey, Work Release Note ED Sign-out <Betsy Menon DO - Last Filed: 05/31/24 18:40> Cosign ED Attending Cosignature Attestation: I was immediately available in the department for consultation.
[2024-05-31] MEDS: ACETAMINOPHEN 325 MG TABLET 650 MG PO (13:28)
[2024-05-31 13:55] VITALS: BP 139/79; PULSE 110; RESP 19; TEMP 37.7; O2SAT 95
== END 2024-05-31 13:55 | disposition home or self-care (01) ==
PROVIDERS: Emergency Medicine; Emergency Provider Physician Assistant Medical
DX: J02.0 Streptococcal pharyngitis (principal)
CPT/HCPCS: 0241U; 87651; 99283

== ENCOUNTER → 2025-03-05 12:32 | Outpatient (CLI) | payer OTHER, SELFPAY | PROVIDERS: Visit Provider Family Medicine | DX: R43.1 Parosmia (principal) | CPT/HCPCS: 87210 ==

== ENCOUNTER → 2025-03-11 16:25 | Outpatient (CLI) | payer OTHER, SELFPAY ==
--- NOTE | 2025-03-11 16:50 | DI.US.S_ITS ---
PROCEDURE: US PELVIC COMPLETE INDICATIONS: Heavy menstrual bleeding, intermenstrual spotting TECHNIQUE: Real-time scanning was performed of the pelvic organs, with image documentation. Additional endovaginal scanning was necessary due to incomplete visualization of the adnexal and endometrial structures by transabdominal scanning. COMPARISON: None. FINDINGS: Uterus: Uterus is anteverted and normal in size at 9.4 x 4.4 x 5.3 cm. The myometrium is heterogenous. The endometrium measures 4.4 mm combined thickness. Ovaries: The right ovary measures 2.8 x 2.2 x 2.6 cm, with a calculated ovarian volume of 8.5 cc. The left ovary measures 2.4 x 2.1 x 2.2 cm, with a calculated ovarian volume of 5.9 cc. The ovaries have a normal sonographic appearance. No adnexal masses are seen. Other: No pathologic free abdominal or pelvic fluid. IMPRESSION: Unremarkable ultrasound the pelvis Approved by: Campos Pinedo M.D. on 03/12/2025 at 19:01
== END ==
PROVIDERS: Referring Provider Family Medicine; Visit Provider Family Medicine
DX: N92.0 Excessive and frequent menstruation with regular cycle (principal)
CPT/HCPCS: 76830; 76856

== ENCOUNTER 2025-03-16 13:17 | Emergency (ER) | payer OTHER, SELFPAY ==
[2025-03-16 13:20] VITALS: BP 125/68; PULSE 75; RESP 16; TEMP 36.2; O2SAT 97; BMI 39.1
[2025-03-16 13:52] LABS: Ictotest Urine Negative (Negative)
[2025-03-16 13:54] LABS: Culture Indicated Urine Cult Not Indicated
--- NOTE | 2025-03-16 14:36 | ED_ITS ---
HPI - Female Genitourinary General Chief complaint: Urogenital-Female Stated complaint: UTI - noticed yesterday Time Seen by Provider: 03/16/25 14:20 Source: patient Mode of arrival: Ambulatory History of Present Illness HPI Narrative: Patient is a healthy 29-year-old female presenting today with painful frequent urination. She reports it started yesterday he has minimal low back pain she had some chills but is afebrile. She has had many UTIs in the past this feels similar with significant dysuria. No nausea or vomiting. Related Data Previous Rx's ?Medication ?Instructions ?Recorded cephalexin 500 mg capsule 500 mg PO BID 5 days #10 cap s 03/16/25 phenazopyridine 100 mg tablet 100 mg PO TID PRN pain 6 doses #6 03/16/25 (Pyridium) tabs Allergies Allergy/AdvReac Type Severity Reaction Status Date / Time No Known Drug Allergies Allergy Verified 03/16/25 13:20 Patient History Medical History Preeclampsia (spontaneous vaginal delivery) Low-lying placenta in second trimester High risk due to history of previous obstetrical problem Surgical History History of removal of skin mole [place] teeth extracted History of appendectomy History of cholecystectomy Family History Mother Pseudotumor Hypertension Father Heart disease Family estrangement Grandmother Fibrocystic breast Family/Other Epilepsy Exam Initial Vital Signs Initial Vital Signs: Vital Signs Temperature 97.1 F L 03/16/25 13:20 Pulse Rate 75 03/16/25 13:20 Respiratory Rate 16 03/16/25 13:20 Blood Pressure 125/68 03/16/25 13:20 Pulse Oximetry 97 03/16/25 13:20 Oxygen Delivery Method Room Air 03/16/25 13:20 GENERAL: Alert pleasant well-appearing nontoxic 29-year-old and in no acute distress. HEENT: Head atraumatic,EOMI, pupils reactive, face symmetric, moist mucous membranes CARDIOVASCULAR: Regular rate and rhythm without murmurs, rubs or gallops. RESPIRATORY: Breath sounds equal bilaterally, no wheezes rales or rhonchi. ABDOMEN: Soft, nontender. Normoactive bowel sounds all 4 quadrants. No guarding or rebound. : No CVA tenderness EXTREMITIES: Normal range of motion, no clubbing or edema. Neurovascularly intact NEUROLOGICAL: Alert and oriented x4.Normal gait and speech. Cranial nerves II through XII grossly intact. SKIN: Warm, dry, no laceration, no petechiae, no rashes or lesions. Course Orders Ordered: ED Orders 03/16/25 13:25 Ictotest Urine Stat Urine Culture Stat Urine Microscopic Stat Discontinued Medications Cephalexin HCl (Cephalexin 250 Mg Capsule) 500 mg PO NOW ONE Stop: 03/16/25 14:37 Last Admin: 03/16/25 14:39 Dose: 500 mg Documented By: EVERETT Phenazopyridine HCl (Phenazopyridine 100 Mg Tablet) 100 mg PO NOW ONE Stop: 03/16/25 14:37 Last Admin: 03/16/25 14:39 Dose: 100 mg Documented By: EVERETT Vital Signs Vital signs: Vital Signs - 8 hr 03/16/25 13:20 03/16/25 14:41 Temperature 97.1 F L Pulse Rate 75 71 Respiratory Rate 16 16 Blood Pressure 125/68 135/88 Pulse Oximetry 97 97 Oxygen Delivery Method Room Air Room Air MDM - Female Genitourinary Lab Data Labs: Lab Results 03/16/25 Range/Units 13:25 Ur Bilirubin Confirm Negative (Negative) Urine RBC 30-100/hpf H (0-5/HPF) Urine WBC 10-30/hpf H (0-5/HPF) Ur Squamous Epith Cells 1-5 /hpf (0-5/HPF) Urine Bacteria Many (>30) H (None) Urine Mucus 1+ H (Negative) Ur Culture Indicated? Cult not indicated Vol Urine Centrifuged 10ml (spun) Point of Care Testing Test Results Negative Urine Dip Bedside Urine Glucose Negative Bedside Urine Bilirubin + 1 Bedside Urine Ketone - Negative Urine Specific [place] 1.030 Bedside Urine Occult Blood +++ Bedside Urine pH 6.0 Bedside Urine Protein ++ 100 Bedside Urine Urobilinogen - Negative Bedside Urine Nitrite - Negative Bedside Urine Leukocytes + 70 Esterase MDM Narrative Medical decision making narrative: Patient 29-year-old female presenting to day with signs and symptoms of UTI she does have leukocytes and bacteria in her urine but also want to 5 squamous cells. However we will go ahead and treat her for infection. She is nontoxic vitals are stable. No concern for sepsis. Given 1st dose of Keflex and Pyridium here in the ED. Discharge Plan Departure Patient Disposition: Home Clinical Impression: Urinary tract infection Instructions: DI for Urinary Tract Infection (UTI) Activity Restrictions/Additional Instructions: *You have been diagnosed with UTI *What to do: *Continue to take medications as directed Keflex 500 mg twice a day for 5 days Pyridium 100 mg 3 times a day for 3 days only if needed for pain *Follow up with your primary care provider in 2-3 days or call [phone] *Return to ER if you should have increasing pain fever nausea vomiting or any new, worsening or concerning symptoms Prescriptions: New phenazopyridine [Pyridium] 100 mg tablet 100 mg PO TID PRN (Reason: pain) Qty: 6 0RF cephalexin 500 mg capsule 500 mg PO BID 5 Days Qty: 10 0RF Referrals: ProviderParis [Primary Care Provider, Family Practice] Stand Alone Forms: Patient Portal/API
[2025-03-16] MEDS: PHENAZOPYRIDINE 100 MG TABLET PO (14:39)
[2025-03-16 14:41] VITALS: BP 135/88; PULSE 71; RESP 16; O2SAT 97
== END 2025-03-16 14:45 | disposition home or self-care (01) ==
PROVIDERS: Emergency Provider Emergency Medicine
DX: N39.0 Urinary tract infection, site not specified (principal)
CPT/HCPCS: 81003; 81015; 81025; 87077; 87086; 87186; 99283

== ENCOUNTER 2025-03-18 09:15 | Emergency (ER) | payer OTHER, SELFPAY ==
[2025-03-18] VITALS (7 sets, daily range): BP systolic 126–140; BP diastolic 67–83; PULSE 85–111; RESP 18; TEMP 37.1; O2SAT 95–98; BMI 39.1
--- NOTE | 2025-03-18 09:34 | ED_ITS ---
HPI - Abdominal Pain General Chief Complaint: Abdominal Pain Stated Complaint: N/V/D 1 day Time Seen by Provider: 03/18/25 09:18 Source: patient and RN notes reviewed History of Present Illness HPI narrative: 29-year-old female seen for UTI on 03/16/2025 placed on Keflex presents with epigastric pain and numerous bouts of nonbilious nonbloody nausea, vomiting, and diarrhea for the past few days. Patient denies fever, chills, body aches, sore throat, cough, back pain, rectal bleeding, hematuria, dysuria, vaginal discharge. Other than what is stated 14 point review of system is negative. Related Data Previous Rx's ?Medication ?Instructions ?Recorded cephalexin 500 mg capsule 500 mg PO BID 5 days #10 cap s 03/16/25 phenazopyridine 100 mg tablet 100 mg PO TID PRN pain 6 doses #6 03/16/25 (Pyridium) tabs ondansetron 4 mg disintegrating 4 mg PO Q8H PRN nausea and 03/18/25 tablet vomiting #30 tabs polyethylene glycol 3350 17 17 g PO DAILY #238 grams 1 05/18/24 gram/dose oral powder (Miralax) Allergies Allergy/AdvReac Type Severity Reaction Status Date / Time No Known Drug Allergies Allergy Verified 03/18/25 09:20 Review of Systems Review of Systems ROS Unobtainable: All systems reviewed & are unremarkable except as noted in HPI and below Patient History Medical History Preeclampsia (spontaneous vaginal delivery) Low-lying placenta in second trimester High risk due to history of previous obstetrical problem Surgical History History of removal of skin mole [place] teeth extracted History of appendectomy History of cholecystectomy Family History Mother Pseudotumor Hypertension Father Heart disease Family estrangement Grandmother Fibrocystic breast Family/Other Epilepsy Social History marital status: number of children: 3 household members: spouse and children lives independently: Yes caregiver/support person: Yes housing: apartment pets and animals: No education level: college occupational status: unemployed current occupational exposures/hazards: No special rody needs: No travel history: recent seatbelt use: always water heater temp set < 120 deg: Yes working smoke detector in home: Yes fire extinguisher in home: Yes carbon monox detector in home: Yes firearms in home: No do you feel safe at home: Yes Smoking Status: Never smoker second hand exposure: No alcohol intake: former substance use type: does not use during the past year weight has: other well-balanced diet: daily or most days daily servings fruits/ve-4 caffeine: Yes (AM cup coffee, usually decaf) Type(s) of exercise: bicycling and other Smoking Status: Never smoker Exam Narrative Exam Narrative: GENERAL: [29] year old patient appears stated age. Well-developed patient, in mild distress. HEAD: Atraumatic. Normocephalic. EYES: Pupils equal round and reactive. Extraocular motions intact. No scleral icterus. No injection or drainage. ENT: Nose without bleeding, purulent drainage. Throat without erythema, tonsillar hypertrophy or exudate. Airway patent. NECK: Trachea midline. Non tender CARDIOVASCULAR: Regular rate and rhythm without murmurs, gallops, or rubs. RESPIRATORY: Clear to auscultation. Breath sounds equal bilaterally. No wheezes, rales, or rhonchi. GASTROINTESTINAL: Abdomen soft, non-tender, nondistended. EXTREMITIES: No edema or joint tenderness. BACK: Nontender without deformity or crepitance. No flank tenderness. NEURO: AOx3. SKIN: No rash or erythema of visible areas Initial Vital Signs Initial Vital Signs: Vital Signs Temperature 98.8 F 03/18/25 09:21 Pulse Rate 108 H 03/18/25 09:21 Respiratory Rate 18 03/18/25 09:21 Blood Pressure 130/70 03/18/25 09:21 Pulse Oximetry 97 03/18/25 09:21 Oxygen Delivery Method Room Air 03/18/25 09:21 Course Orders Ordered: ED Orders 03/18/25 09:36 XR abdomen 3V Stat 03/18/25 09:51 Urinalysis and Microscopic Stat 03/18/25 09:52 Complete Blood Count AUTO DIFF Stat Comprehensive Metabolic Panel Stat Lipase Stat Lactated Ringer's (Lactated Ringers) 1,000 mls @ 1,000 mls/hr IV BOLUS ONE Stop: 03/18/25 10:34 Last Admin: 03/18/25 10:02 Dose: 1,000 mls/hr Documented By: EVERETT Ondansetron HCl (Ondansetron 4 Mg/2 Ml Inj) 4 mg IV NOW PRN PRN Reason: Nausea And Vomiting Last Admin: 03/18/25 09:57 Dose: 4 mg Documented By: EVERETT Ondansetron HCl (Ondansetron 4 Mg Odt) 4 mg PO NOW PRN PRN Reason: Nausea And Vomiting Vital Signs Vital signs: Vital Signs - 8 hr 03/18/25 09:21 Temperature 98.8 F Pulse Rate 108 H Respiratory Rate 18 Blood Pressure 130/70 Pulse Oximetry 97 Oxygen Delivery Method Room Air MDM - Abdominal Pain Lab Data 03/18/25 09:52 03/18/25 09:52 Labs: Lab Results 03/18/25 03/18/25 Range/Units 09:51 09:52 WBC 8.1 (4.5-11.0) X10^3/uL RBC 5.03 (4.0-5.2) X10^6/uL Hgb 14.4 (12.0-16.0) g/dL Hct 41.6 (36-46) % MCV 82.8 (80-100) fL MCH 28.5 (26-34) PG MCHC 34.5 (30-36) % RDW 13.3 (11.6-14.8) % Plt Count 294 (150-400) X10^3/uL Neut % (Auto) 84.7 H (50-75) % Lymph % (Auto) 9.8 L (25-40) % [place] % (Auto) 4.5 (3-14) % Eos % (Auto) 0.9 L (2-4) % Baso % (Auto) 0.1 (0-2) % Neut # (Auto) 6800 (6915-1448) /uL Lymph # (Auto) 800 L (0716-6484) /uL [place] # (Auto) 400 (0-900) /uL Eos # (Auto) 100 (0-450) /uL Baso # (Auto) 0 (0-100) /uL Sodium 138 (137-145) mmol/L Potassium 3.9 (3.4-5.1) mmol/L Chloride 105 (98-107) mmol/L Carbon Dioxide 22 (22-32) mmol/L BUN 10 (7-17) mg/dL Creatinine 0.80 (0.52-1.04) mg/dL Estimated GFR > 60 (>60) mL/min BUN/Creatinine Ratio 12.5 (6-22) Glucose 110 H (70-99) mg/dL Calcium 8.8 (8.4-10.2) mg/dL Total Bilirubin 0.5 (0.2-1.3) mg/dL AST 33 (14-36) IU/L ALT 34 (<35) IU/L Alkaline Phosphatase 58 (38-126) U/L Total Protein 7.9 (6.3-8.2) g/dL Albumin 4.7 (3.5-5.0) g/dL Globulin 3.2 (1.7-4.1) g/dL Albumin/Globulin Ratio 1.5 (1.0-2.8) Lipase 62 (23-300) U/L Urine Color Yellow Urine Appearance Clear Urine pH 6.5 (4.5-8.0) Ur Specific [place] 1.010 (1.000-1.035) Urine Protein Negative (Negative) Urine Glucose (UA) Trace H (Negative) g/dL Urine Ketones Trace H (NEGATIVE) Urine Occult Blood Negative (Negative) Urine Nitrate Positive H (Negative) Urine Bilirubin Negative (NEGATIVE) Urine Urobilinogen 4.0 H (0.2) E.U./dL Ur Leukocyte Esterase Negative (NEGATIVE) Urine RBC None seen (0-5/HPF) Urine WBC 0-1/hpf (0-5/HPF) Ur Squamous Epith Cells 10-30 /hpf H D (0-5/HPF) Urine Bacteria Occasional (0-1) (None) Ur Culture Indicated? Cult not indicated Vol Urine Centrifuged 10ml (spun) Point of care testing: Point of Care Testing Test Results Negative MDM Narrative Medical decision making narrative: All lab work, vital signs, nurse triage note, medication list, previous ER visits, and all imaging studies reviewed. WBC 8.1 hemoglobin 14.4 platelets 294 sodium 138 has not 3.9 chloride 105 CO2 22 BUN 10 creatinine 0.8 glucose 110 LFTs normal paste 62 urine showed positive nitrites positive ketones and glucose. X-ray showed no acute process in chest or abdomen but moderately large fecal load normal bowel gas pattern. Patient given fluids and Rocephin here. DC home on MiraLax and Zofran and to continue taking antibiotics for UTI. Differential diagnosis constipation UTI kidney stone kidney infection diverticulitis pancreatitis. Discharge Plan Departure Patient Disposition: Home Clinical Impression: UTI (urinary tract infection), Constipation, Nausea & vomiting Instructions: DI for Constipation Activity Restrictions/Additional Instructions: Return with new or worsening symptoms. Keep hydrated. Clear liquid diet advance as tolerated. Continue taking antibiotics for UTI. Take medicines as needed for constipation and nausea vomiting. Prescriptions: New polyethylene glycol 3350 [Miralax] 17 gram/dose powder 17 g PO DAILY Qty: 238 0RF ondansetron 4 mg tablet,disintegrating 4 mg PO Q8H PRN (Reason: nausea and vomiting) Qty: 30 0RF No Action phenazopyridine [Pyridium] 100 mg tablet 100 mg PO TID PRN (Reason: pain) Qty: 6 0RF cephalexin 500 mg capsule 500 mg PO BID 5 Days Qty: 10 0RF Referrals: [facility] [Primary Care Provider, Family Practice] Stand Alone Forms: Patient Portal/API
--- NOTE | 2025-03-18 09:36 | DI.RAD.S_ITS ---
PROCEDURE: XR ABDOMEN 3V INDICATIONS: abd pain n/v/d TECHNIQUE: One view chest and two views of the abdomen were acquired. COMPARISON: None. FINDINGS: Surgical changes and devices: Cholecystectomy clips. Chest: Lungs are clear. Heart size is normal. No pleural effusions. No pneumoperitoneum. Abdomen: Bowel gas pattern is normal. Moderately large fecal load. No suspicious calcifications. Visualized solid organ contours appear normal. Bones: No suspicious bony lesions. IMPRESSION: No acute process noted in the chest and abdomen. Moderately large fecal load. Normal bowel gas pattern. Dictated by: Ruel Yun M.D. on 03/18/2025 at 10:18 Approved by: Ruel Yun M.D. on 03/18/2025 at 10:18
[2025-03-18] MEDS: ONDANSETRON 4 MG/2 ML INJ IV (09:57)
[2025-03-18] MEDS: LACTATED RINGERS 1,000 ML 1000 ML IV (10:02)
[2025-03-18 10:03] LABS: Add Manual Diff / Slide Review NO; Hematocrit 41.6 % (36-46); Hemoglobin 14.4 g/dL (12.0-16.0); Lymphocytes Absolute Auto 800 /uL (1100-4500); Mean Corpuscular HGB Conc 34.5 % (30-36); Mean Corpuscular Hemoglobin 28.5 PG (26-34); Mean Corpuscular Volume 82.8 fL (80-100); Platelet Count 294 X10^3/uL (150-400)
[2025-03-18 10:07] LABS: Appearance Urine UA CLEAR; Bilirubin Urine UA NEGATIVE (NEGATIVE); Color Urine UA YELLOW; Glucose Urine UA TRACE g/dL (Negative); Ketones Urine UA TRACE (NEGATIVE); Leukocyte Esterase Urine UA NEGATIVE (NEGATIVE); Nitrite Urine UA POSITIVE (Negative); Occult Blood Urine UA NEGATIVE (Negative); Protein Urine UA NEGATIVE (Negative); Specific Gravity Urine UA 1.010 (1.000-1.035); Urobilinogen Urine UA 4.0 E.U./dL (0.2)
[2025-03-18 10:18] LABS: Alanine Aminotransferase 34 IU/L (<35); Albumin 4.7 g/dL (3.5-5.0); Albumin Globulin Ratio 1.5 (1.0-2.8); Alkaline Phosphatase 58 U/L (38-126); Blood Urea Nitrogen 10 mg/dL (7-17); Calcium 8.8 mg/dL (8.4-10.2); Carbon Dioxide 22 mmol/L (22-32); Chloride 105 mmol/L (98-107); Estimated Glomerular Filt Rate > 60 mL/min (>60); Globulin 3.2 g/dL (1.7-4.1); Glucose 110 mg/dL (70-99); HEMOLYSIS < 15 (0-50); Lipase 62 U/L (23-300); Potassium 3.9 mmol/L (3.4-5.1); Sodium 138 mmol/L (137-145); Total Protein 7.9 g/dL (6.3-8.2)
[2025-03-18 10:19] LABS: pH Urine UA 6.5 (4.5-8.0)
[2025-03-18 10:21] LABS: Culture Indicated Urine Cult Not Indicated
[2025-03-18] MEDS: LACTULOSE 20 GM/30 ML SOLUTION PO (10:48)
== END 2025-03-18 11:27 | disposition home or self-care (01) ==
PROVIDERS: Emergency Provider Family Medicine
DX: N39.0 Urinary tract infection, site not specified (principal); K59.00 Constipation, unspecified; R11.2 Nausea with vomiting, unspecified
CPT/HCPCS: 36415; 74021; 80053; 81001; 81025; 83690; 85025; 96361; 96365; 96375; 99284; J0696; J2405; J7050; J7120

== ENCOUNTER → 2025-04-16 10:19 | Outpatient (CLI) | payer OTHER, SELFPAY ==
[2025-04-16 10:58] LABS: Add Manual Diff / Slide Review NO; Hematocrit 39.6 % (36-46); Hemoglobin 13.6 g/dL (12.0-16.0); Lymphocytes Absolute Auto 2300 /uL (1100-4500); Mean Corpuscular HGB Conc 34.5 % (30-36); Mean Corpuscular Hemoglobin 28.6 PG (26-34); Mean Corpuscular Volume 83.0 fL (80-100); Platelet Count 300 X10^3/uL (150-400)
[2025-04-16 11:07] LABS: Hemoglobin A1C% w Est Avg Glu 5.1 % (4.0-6.0)
[2025-04-16 11:16] LABS: INR 0.9 (0.9-1.3); Prothrombin Time 10.7 SECONDS (9.4-12.5)
[2025-04-16 11:30] LABS: HEMOLYSIS < 15 (0-50); Iron 98 ug/dL (37-170)
[2025-04-16 11:33] LABS: Alanine Aminotransferase 25 IU/L (<35); Albumin 4.4 g/dL (3.5-5.0); Albumin Globulin Ratio 1.6 (1.0-2.8); Alkaline Phosphatase 55 U/L (38-126); Blood Urea Nitrogen 12 mg/dL (7-17); Calcium 9.4 mg/dL (8.4-10.2); Carbon Dioxide 24 mmol/L (22-32); Chloride 108 mmol/L (98-107); Estimated Glomerular Filt Rate > 60 mL/min (>60); Globulin 2.8 g/dL (1.7-4.1); Glucose 96 mg/dL (70-99); HEMOLYSIS < 15 (0-50); Potassium 4.4 mmol/L (3.4-5.1); Sodium 140 mmol/L (137-145); Total Protein 7.2 g/dL (6.3-8.2)
[2025-04-16 11:42] LABS: Percent Iron Saturation 28 % (15-50); Total Iron Binding Capacity 346 ug/dL (265-497); Transferrin 286 mg/dL (206-381)
[2025-04-16 12:01] LABS: Follicle Stimulating Hormone 5.84 mIU/mL
[2025-04-16 12:02] LABS: TSH w/ Reflex to FT4 1.93 uIU/mL (0.47-4.68); Vitamin D 25 Hydroxy (D3) 20.4 ng/mL (30.0-100.0)
[2025-04-16 12:06] LABS: Ferritin 27 ng/mL (6-137)
[2025-04-16 12:17] LABS: Estradiol, Total 45.7 pg/mL
== END ==
PROVIDERS: Referring Provider Family Medicine; Visit Provider Family Medicine
DX: Z13.21 Encounter for screening for nutritional disorder (principal); N92.0 Excessive and frequent menstruation with regular cycle; E66.9 Obesity, unspecified; R53.83 Other fatigue
CPT/HCPCS: 36415; 80053; 82306; 82670; 82728; 83001; 83002; 83036; 83540; 83550; 84146; 84443; 85025; 85610